=== PATIENT | male | born 1985 | race Caucasian/White ===

== ENCOUNTER 2016-12-10 04:57 | Emergency (ER) | payer OTHER ==
[~2016-12-10] VITALS: Ht 177.8 cm; Wt 100.5 kg
[2016-12-10 05:00] VITALS: Ht 177.8 cm; Wt 100.5 kg
--- NOTE | 2016-12-10 05:23 | ERD ---
ER Documentation Chief Complaint Date/Time DATE: 12/10/16 TIME: 05:22 Chief Complaint dizziness and cough x 2 days, denies congestion. SO here for URI too. HPI 31-year-old male who presents to the emergency room for productive cough, dizziness. Symptoms has been going on and off for about 3 days. Stated that he feels like he had a fever at home but never took his temperature. Exposed to who has bronchitis symptoms. Denies headache, loss of consciousness, dizziness, blurry vision, changes in vision, photophobia, ear pain, throat pain, difficulty swallowing, neck pain, shoulder pain, chest pain, hemoptysis, abdominal pain, back pain, loss of appetite, nausea, vomiting, hematochezia, diarrhea, constipation, urinary symptoms, bladder and bowel incontinences, extremity weakness, extremity tenderness, numbness or tingling sensation, difficulty walking, recent travel, recent antibiotic use in the last 3 months. Allergy: Sulfa. PMH: Denies. Medications: Advil. Surgery: Denies. Family history: Denies family history of stroke, cardiac before the age of 50. Primary Social History: Not working at this time. Occasionally drinks alcoholic beverages. Denies smoking, use of illegal drugs. ROS All systems reviewed and are negative except as per history of present illness. Medications Home Meds Active Scripts Albuterol Sulfate* (Proair HFA*) 8.5 Gm Hfa.aer.ad, 2 PUFF INH Q4, #1 INHALER Prov:PASILABAN,SHIVAMAR F 12/10/16 Ibuprofen* (Motrin*) 800 Mg Tab, 800 MG PO Q6, #30 TAB Prov:PASILABANSHIVAMAR F 12/10/16 Amoxicillin/Potassium Clav (Amox-Clav 875-125 mg Tablet) 875-125 mg Tab, 1 TAB PO BID for 7 Days, #14 TAB Prov:PASILABAN,KLAR F 12/10/16 Allergies Allergies: Coded Allergies: Sulfa (Sulfonamide Antibiotics) (Verified Allergy, Unknown, 12/10/16) Physical Exam Vitals Vital Signs Date Time Temp Pulse Resp B/P Pulse Ox O2 Delivery O2 Flow Rate FiO2 12/10/16 05:00 98.0 87 20 138/96 97 Physical Exam CONSTITUTIONAL: Well-appearing; well-nourished; in no apparent distress. HEAD: Normocephalic; atraumatic. EYES: Conjunctiva clear, sclera non-icteric, EOM intact. PERRL Ears: Hearing intact. EACs clear, TMs non-bulging, non-inflamed, translucent & mobile, ossicles normal appearance, No obstructions, no erythema, no discharges Nose: No obstructions. No polyps. No external lesions. Mild congestion. No external lesions, septum and turbinates normal. No rhinorrhea. No discharges. Frontal sinus is tender to palpation. Maxillary sinus is tender to palpation. MOUTH: Moist mucous membranes, no lesion, no obstructions, no vesicles, no thrush, patent airway Throat: Uvula in midline. Right tonsil is +2 with erythema, no exudate. Left tonsil is +2 with erythema, no exudate. No drooling. Tolerating secretions well. No difficulty swallowing. Good gag reflex. Patent airway. Speaks full and clear sentences. Neck: Supple, without lesions, bruits, or adenopathy. No mass. Thyroid non- enlarged and non-tender to palpation. CHEST: Symmetrical chest. Respirations even and not labored. No retractions noted. CARDIOVASCULAR: Normal S1, S2. RRR. No murmurs, gallops. RESPIRATORY: Normal chest excursion with respiration; breath sounds clear and equal bilaterally; no wheezes, rhonchi, or rales. Breathing even and unlabored. Speaking in clear, full, and complete sentences w/ ease. ABDOMEN: Normal bowel sounds normal. Soft, round, non-distended, non-guarding, no tenderness, no rebound, no organomegaly, no masses, no pulsating abdominal mass. No hernia. No peritoneal signs. : No CVA tenderness. BACK: Symmetrical shoulder. Spine is midline without deformity, tenderness. No evidence of trauma or deformity. PELVIS: Stable pelvis. No evidence of trauma or deformity. MUSCULOSKELETAL: Normal gait and station. No misalignment, asymmetry, crepitation, defects, tenderness, masses, effusions, decreased range of motion, instability, atrophy or abnormal strength or tone in the head, neck, spine, ribs , pelvis or extremities. No calf tenderness. NEUROVASCULAR: Distal pulses are present. Pedal pulse are present, equal, and normal. Capillary refills are < 2 seconds. NEUROLOGIC: Alert and oriented x4. Speaks full and clear sentences. Cranial Nerves II-XII normal. Sensation to pain, touch, and proprioception normal. Grossly unremarkable. No neurologic deficits. Romberg test is negative. PSYCHOLOGICAL: The patients mood and manner are appropriate. No hallucinations , delusions. Not SI. Not HI. Has the capacity to decide for self SKIN: Normal for age and ethnicity; warm; dry; good turgor; no apparent lesions or exudates. No rashes, hives, discoloration. Intact. Results 24 hrs Current Medications Medications (Trade) Dose Ordered Sig/Teresa Route PRN Reason Start Time Stop Time Status Last Admin Dose Admin Ibuprofen (Motrin) 800 mg ONCE ONCE PO 12/10/16 05:30 12/10/16 05:31 DC Procedures/MDM Examination: Please see physical examination. Disease process, medical treatment was explained to the patient and family member. They verbalized understanding and agreed with the medical treatment, and follow-up care. Treatment: Motrin. Re-evaluation: Denies pain. Respirations even and unlabored. Tolerating secretions. No drooling. No difficulty swallowing. Speaks full and clear sentences. Patent airway. Lung sounds are clear to auscultation. No neurological deficits. Consultation: None. Differential diagnosis: Pneumonia versus colitis versus upper respiratory infection versus acute clinical sinusitis versus strep throat versus tonsillitis Medical decision makin-year-old male who presents to the emergency room for productive cough, dizziness. Symptoms has been going on and off for about 3 days. Stated that he feels like he had a fever at home but never took his temperature. Exposed to who has bronchitis symptoms. Patient's complaint , patient's history about his complaint, my physical findings, my re-evaluation are consistent with my final diagnosis of acute bacterial sinusitis. Medications prescribed are the following: Augmentin. Motrin. Pro-air. Patient and family member are made aware of the side effects and adverse reactions of the medications prescribed. Instructed on when to seek emergent and medical attention in case allergic/anaphylactic reactions or severe side effects and or adverse reactions to medications. Patient and family member verbalized understanding. Patient instructed Instructed to follow-up with his PCP in 24-48 hours. Instructed to Call 911 for chest pain, shortness of breath. Advised to come back here in ED as soon as possible for severity of symptoms which includes but not limited to: any new symptoms; shortness of breath/difficulty of breathing; cardiovascular changes; severe gastrointestinal symptoms; signs and symptoms of bleeding and or infection; signs of compartment syndrome/neurovascular changes; neurological changes/deficits. Patient and family member verbalized understanding. Upon discharge, patient is alert and oriented x 4, speaks full and clear sentences, denies pain, has no neurological deficits, has no neurovascular deficits, difficulty of breathing. Breathing even and unlabored. Lung sounds are clear to auscultation. Not in distress. Appears comfortable. Ambulatory with steady gait. Appears satisfied with care provided here in ED. Departure Diagnosis: Primary Impression: Sinusitis, acute frontal Additional Impression: Sinusitis, acute maxillary Condition: Good Additional Instructions: Patient instructed Instructed to follow-up with his PCP in 24-48 hours. Instructed to Call 911 for chest pain, shortness of breath. Advised to come back here in ED as soon as possible for severity of symptoms which includes but not limited to: any new symptoms; shortness of breath/difficulty of breathing; cardiovascular changes; severe gastrointestinal symptoms; signs and symptoms of bleeding and or infection; signs of compartment syndrome/neurovascular changes; neurological changes/deficits. Patient and family member verbalized understanding. SRAVAN BIRMINGHAM Dec 10, 2016 05:22 SRAVAN BIRMINGHAM Dec 10, 2016 05:22
[2016-12-10] MEDS ORDERED: AMOX1TAB10 PO (05:24)
[2016-12-10] MEDS ORDERED: IBUP800T25 PO (05:25)
[2016-12-10] MEDS ORDERED: ALBU8.5H3 INH (05:25)
[2016-12-10] MEDS ORDERED: IBUPROFEN 800 MG TAB PO ONE (05:30)
== END 2016-12-10 06:09 | disposition home or self-care (01) ==
LOC: FTE 04:57
DX: J01.80 Other acute sinusitis (principal)
CPT/HCPCS: Z7502; Z7610; 99284